=== PATIENT | female | born 1995 | race Caucasian/White ===

== ENCOUNTER 2016-12-10 05:15 | Emergency (ER) | payer BC, OTHER ==
[~2016-12-10] VITALS: Ht 167.6 cm; Wt 77.1 kg
[2016-12-10 06:01] LABS: BILIRUBIN,URINE NEGATIVE (NEGATIVE); KETONES,URINE NEGATIVE (NEGATIVE); LEUKOCYTE ESTERASE ,URINE NEGATIVE (NEGATIVE); NITRITE,URINE NEGATIVE (NEGATIVE); PH,URINE 6 (5-9); PROTEIN,URINE NEGATIVE (NEGATIVE); UROBILINOGEN,URINE NORMAL (NORMAL)
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
[2016-12-10 06:19] LABS: BASOPHILS # (AUTO) 0.1 10^3/uL (0.0-0.1); BASOPHILS % (AUTO) 1 % (0-10); EOSINOPHILS # (AUTO) 0.1 10^3/uL (0.0-0.3); EOSINOPHILS % (AUTO) 1 % (0-10); LYMPHOCYTES % (AUTO) 47 % (12-44); MEAN CORPUSCULAR HEMOGLOBIN 29 PG (25-34); MEAN CORPUSCULAR HGB CONC 34 G/DL (32-36); MEAN CORPUSCULAR VOLUME 85 FL (80-99); MEAN PLATELET VOLUME 10.9 FL (7.4-10.4); MONOCYTES # (AUTO) 0.7 X 10^3 (0.0-1.0); MONOCYTES % (AUTO) 6 % (0-12); NEUTROPHILS # (AUTO) 4.9 X 10^3 (1.8-7.8); NEUTROPHILS % (AUTO) 46 % (42-75); PLATELET COUNT 214 10^3/uL (130-400); RED BLOOD COUNT 4.67 10^6/uL (4.35-5.85); RED CELL DISTRIBUTION WIDTH 12.6 % (10.0-14.5); WHITE BLOOD COUNT 10.8 10^3/uL (4.3-11.0)
[2016-12-10] MEDS: KETOROLAC 60 MG/2 ML VIAL IM ONE (06:51)
[2016-12-10 07:12] VITALS: BP 114/80
--- OUTSIDE RECORDS SUMMARY | 2016-12-12 09:12 | XMS REPORT ---
Author Author JAZMIN DAMIAN Organization Unknown Address [address] [place] [address] [address] [place] [address] Care Team Providers Care Corporate Planner Name Role Phone NA BRISENO Unavailable JAZMIN DAMIAN Unavailable Problems Problem SNOMED Onset Date Resolved Date Status N/A N/A N/A N/A N/A Allergies, Adverse Reactions Substance Code Type Code Type Reaction Severity Status DOXYCYCLINE RxNorm 3640 Active Care Plan Goal Instructions Client will be functioning more independently with supports and have a life worth living. Engage with treatment team to build rapport. Learn and practice coping skills to reduce symptoms and improve functioning. The following Services will be utilized 1 - 3 times until goal is reached: Improve and maintain functioning through medical psychiatric services. Initial Psychiatric Evaluation, Ongoing medication monitoring and management, Case Conference with multidisciplinary members of the [facility] team as indicated, and/or Collaboration and coordination with outside medical providers as indicated by providing the following services: 13362 interactive complexity 73148 psychiatric diagnostic eval w/ meds 36052 30 min psychotherapy add-on 49782 45 [place] [address] 60 min psychotherapy add-on 62312 med injection 28662 New Patient E&M (level 1) 25364 New Patient E&M (level 2) 83353 New Patient E&M (level 3) 88097 New patient E&M (level 4) 78665 New Patient E&M (level 5) 66980 Established Patient E&M (level 1) 96166 Established Patient E&M (level 2) 27448 Established Patient E&M (level 3) 39049 Established Patient E& amp;M (level 4) 02081 Established Patient E&M (level 5) 9935x prolonged service code 16089 case conference w/o clt & [place]/ [place] [address] case conference w/o clt w / MD H0038 Peer Support Individual H2017 Psychosocial Rehab Indiv Medications Medication Code Dose,Form,Route,Freq Start Date End Date Multivitamin Gabapentin - 100 MG ORAL Capsule 414103 Take one (1) Capsule Three Times a Day FOR ANXIETY Sertraline HCl - 25 MG ORAL Tablet 457356 Take three (3) Tablets Daily LORazepam - 1 MG ORAL Tablet 106601 Take one (1) Tablet Twice a Day, As Necessary FOR ANXIETY traZODone hydrochloride - 100 MG ORAL Tablet 311179 Take one (1) Tablet At Bedtime, As Necessary FOR SLEEP/INSOMNIA Sertraline HCl - 25 MG ORAL Tablet 745872 Take three (3) Tablets Daily Lab Results NA Encounters Date Time Service Code Provider 01:31:00 pm JAZMIN DAMIAN 10:41:00 am JAZMIN DAMIAN Family History Functional Status NA Immunizations NA Vital Signs Date Time BP Pulse Temp Height Weight BMI 08:36:00 am 103 over 73 132 bpm 66.25 in 137 lbs 21.9 kg/m^2 Social History Date Smoking Status SNOMED Code Light Tobacco Smoker [id number] Hospital Discharge Instructions NA Hospital Discharge medications Date Medication Dose, Form, Route, Freq Code Multivitamin Instructions * Not Applicable Procedures NA Purpose Electronic Copy
--- OUTSIDE RECORDS SUMMARY | 2016-12-12 09:12 | XMS REPORT ---
Author Author JAZMIN DAMIAN Organization Unknown Address [address] [place] [address] [address] [place] [address] Care Team Providers Care Refinery Operator [employer] Name Role Phone NA BRISENO Unavailable JAZMIN DAMIAN Unavailable Problems Problem SNOMED Onset Date Resolved Date Status N/A N/A N/A N/A N/A Allergies, Adverse Reactions NA Care Plan Goal Instructions Client will be [...] as indicated by providing the following services: 47529 interactive complexity 34010 psychiatric diagnostic eval w/ meds 38880 30 min psychotherapy add-on 21587 45 [place] [address] 60 min psychotherapy add-on 90401 med injection 43695 New Patient E&M (level 1) 86482 New Patient E&M (level 2) 35783 New Patient E&M (level 3) 35649 New patient E&M (level 4) 14848 New Patient E&M (level 5) 68676 Established Patient E&M (level 1) 14842 Established Patient E&M (level 2) 03910 Established Patient E&M (level 3) 74697 Established Patient E& amp;M (level 4) 28303 Established Patient E&M (level 5) 9935x prolonged service code 64378 case conference w/o clt & [place] [address] case conference w/o clt w / MD H0038 Peer Support Individual H2017 Psychosocial Rehab Indiv Medications Medication Code Dose,Form,Route,Freq Start Date End Date Gabapentin - 100 MG ORAL Capsule 470794 Take one (1) Capsule Three Times a Day FOR ANXIETY Sertraline HCl - 25 MG ORAL Tablet 334855 Take three (3) Tablets Daily LORazepam - 1 MG ORAL Tablet 529691 Take one (1) Tablet Twice a Day, As Necessary FOR ANXIETY traZODone hydrochloride - 100 MG ORAL Tablet 088754 Take one (1) Tablet At Bedtime, As Necessary FOR SLEEP/INSOMNIA Lab Results NA Encounters Date Time Service Code Provider 01:31:00 pm JAZMIN DAMIAN 10:41:00 am JAZMIN DAMIAN Family History Functional Status NA Immunizations NA Vital Signs Date Time BP Pulse Temp Height Weight BMI 08:36:00 am 103 over 73 132 bpm 66.25 in 137 lbs 21.9 kg/m^2 Social History Date Smoking Status SNOMED Code Light Tobacco Smoker [id number] Hospital Discharge Instructions NA Instructions * Not Applicable Procedures NA Purpose Electronic Copy
--- OUTSIDE RECORDS SUMMARY | 2016-12-12 09:13 | XMS REPORT ---
Author Author JAZMIN DAMIAN Organization Unknown Address [address] [place] [id number] Care Team Providers Care Medicaid Plan Compliance Director Name Role Phone JUAN ANTONIO ULRICH Unavailable FINN, NA Unavailable JAZMIN DAMIAN Unavailable Problems Problem SNOMED Onset Date Resolved Date Status N/A N/A N/A N/A N/A Allergies, Adverse Reactions Substance Code Type Code Type Reaction Severity Status DOXYCYCLINE RxNorm 3640 Active Care Plan Medications Medication Code Dose,Form,Route,Freq Start Date End Date Multivitamin Gabapentin - 100 MG ORAL Capsule 357904 Take one (1) Capsule Three Times a Day FOR ANXIETY Sertraline HCl - 25 MG ORAL Tablet 217916 Take three (3) Tablets Daily LORazepam - 1 MG ORAL Tablet 693125 Take one (1) Tablet Twice a Day, As Necessary FOR ANXIETY traZODone hydrochloride - 100 MG ORAL Tablet 437642 Take one (1) Tablet At Bedtime, As Necessary FOR SLEEP/INSOMNIA Sertraline HCl - 25 MG ORAL Tablet 083685 Take three (3) Tablets Daily Lab Results NA Encounters Date Time Service Code Provider 01:31:00 pm JAZMIN DAMIAN 06:25:00 pm JUAN ANTONIO ULRICH 10:41:00 am JAZMIN DAMIAN Family History Functional Status NA Immunizations NA Vital Signs Date Time BP Pulse Temp Height Weight BMI 08:36:00 am 103 over 73 132 bpm 66.25 in 137 lbs 21.9 kg/m^2 Social History Date Smoking Status SNOMED Code Light Tobacco Smoker [id number] Hospital Discharge Instructions NA Hospital Discharge medications Date Medication Dose, Form, Route, Freq Code Multivitamin Instructions * Not Applicable Procedures Date Procedure Code Type Code Provider Purpose Electronic Copy
--- OUTSIDE RECORDS SUMMARY | 2016-12-12 09:13 | XMS REPORT ---
Author Author JAZMIN DAMIAN Organization Unknown Address [address] [place] [address] Care Team Providers Care Literacy Specialist Name Role Phone JUAN ANTONIO ULRICH Unavailable FINN, NA Unavailable JAZMIN DAMIAN Unavailable Problems Problem SNOMED Onset Date Resolved Date Status N/A N/A N/A N/A N/A Allergies, Adverse Reactions Substance Code Type Code Type Reaction Severity Status DOXYCYCLINE RxNorm 3640 Active Care Plan Medications Medication Code Dose,Form,Route,Freq Start Date End Date Multivitamin Gabapentin - 100 MG ORAL Capsule 882183 Take one (1) Capsule Three Times a Day FOR ANXIETY Sertraline HCl - 25 MG ORAL Tablet 604662 Take three (3) Tablets Daily LORazepam - 1 MG ORAL Tablet 096977 Take one (1) Tablet Twice a Day, As Necessary FOR ANXIETY traZODone hydrochloride - 100 MG ORAL Tablet 127541 Take one (1) Tablet At Bedtime, As Necessary FOR SLEEP/INSOMNIA Sertraline HCl - 25 MG ORAL Tablet 654927 Take three (3) Tablets Daily Lab Results NA Encounters Date Time Service Code Provider 01:31:00 pm JAZMIN DAMIAN 06:25:00 pm JUAN ANTONIO ULRICH 10:41:00 am JAZMIN DAMIAN Family History Functional Status NA Immunizations NA Vital Signs Date Time BP Pulse Temp Height Weight BMI 08:36:00 am 103 over 73 132 bpm 66.25 in 137 lbs 21.9 kg/m^2 Social History NA Hospital Discharge Instructions NA Hospital Discharge medications Date Medication Dose, Form, Route, Freq Code Multivitamin Instructions * Not Applicable Procedures NA Purpose Electronic Copy
== END 2016-12-10 07:14 | disposition home or self-care (01) ==
LOC: ER 05:20
DX: N93.9 Abnormal uterine and vaginal bleeding, unspecified (principal); F17.210 Nicotine dependence, cigarettes, uncomplicated; Z90.89 Acquired absence of other organs
CPT/HCPCS: 36415; 81000; 84703; 85025; 87070; 87210; 87491; 87591; 99284

== ENCOUNTER 2017-05-19 23:13 | Emergency (ER) | payer BC ==
[~2017-05-19] VITALS: Ht 170.2 cm; Wt 77.1 kg
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
--- NOTE | 2017-05-19 23:26 | ED GI ---
General Chief Complaint: -Female Stated Complaint: NAUSEA,6 WKS PREG Source of Information: Patient Exam Limitations: No Limitations History of Present Illness Date Seen by Provider: May 19, 2017 Time Seen by Provider: 23:25 Initial Comments Patient is a with no prior abdominal surgery as ER by EMS with a history of nausea for the last 2 weeks. She discovered she was about 2 weeks ago and stop drinking and smoking at that time. She did not start vomiting until 2 days ago when she went to [facility] and they told her that they did not feel comfortable prescribing anything for women and so [facility]. She has not taken anything for her nausea datg-loo-[id number] but she did use some peppermint and other things were suggested by the [facility] nurse. Patient's last menstrual period was April 11 which puts her at 5 weeks and 3 days. She's had no blood in her emesis. She's had no trauma. She is having no diarrhea or fevers or was she said she had some chills earlier. Patient denies abdominal pain. Allergies and Home Medications Allergies Coded Allergies: doxycycline (Verified Allergy, Unknown, 12/10/16) Home Medications Doxylamine Succinate 25 Mg Tablet, 25 MG PO Q8H PRN for NAUSEA/VOMITING-2ND LINE , #30 Ref 0 Prescribed by: PIPO NOBLE on 05/20/1748 Ondansetron 4 Mg Tab.rapdis, 4 MG PO Q6H PRN for NAUSEA/VOMITING-3RD LINE, #8 Ref 0 Prescribed by: PIPO NOBLE on 05/20/1748 Pyridoxine HCl 50 Mg Tablet, 50 MG PO Q6H PRN for NAUSEA/VOMITING-1ST LINE, #30 Ref 0 Prescribed by: PIPO NOBLE on 05/20/1748 Review of Systems Constitutional: No chills, No diaphoresis EENTM: No Blurred Vision, No Double Vision Respiratory: Denies Cough, Denies Shortness of Air Cardiovascular: Denies Chest Pain, Denies Palpitations Gastrointestinal: Denies Abdomen Distended, Denies Abdominal Pain, Denies Constipated, Denies Diarrhea, Nausea, Vomiting Genitourinary: Denies Discharge, Denies Drainage Musculoskeletal: No back pain, No joint pain Skin: No pruritus Past Mobgvvf-Neogoc-Uvboxn Hx Patient Social History Alcohol Use: Past History Recreational Drug Use: No Smoking Status: Former Smoker Type Used: Cigarettes Former Smoker, Quit: May 01, 2017 Recent Foreign Travel: No Contact w/Someone Who Travel: No Surgeries History of Surgeries: Yes (wisdom teeth) Surgeries: Adenoidectomy, Tonsillectomy Respiratory History of Respiratory Disorde: No Cardiovascular History of Cardiac Disorders: No Neurological History of Neurological Disord: No Reproductive System Hx Reproductive Disorders: No Genitourinary History of Genitourinary Disor: No Gastrointestinal History of Gastrointestinal Di: No Musculoskeletal History of Musculoskeletal Dis: No Endocrine History of Endocrine Disorders: Yes (reported hypoglycemia) HEENT History of HEENT Disorders: No Cancer History of Cancer: No Psychosocial History of Psychiatric Problem: No Integumentary History of Skin or Integumenta: No Blood Transfusions History of Blood Disorders: No Physical Exam Vital Signs VS - Last 72 Hours, by Label 05/19/17 23:15 Temp 96.8 Pulse 70 Resp 20 B/P (MAP) 116/84 (95) Pulse Ox 100 O2 Delivery Room Air Capillary Refill : General Appearance: WD/WN, no apparent distress HEENT: PERRL/EOMI, normal ENT inspection, TMs normal, pharynx normal Neck: non-tender, full range of motion, supple, normal inspection Respiratory: chest non-tender, lungs clear, normal breath sounds Cardiovascular: normal peripheral pulses, regular rate, rhythm Gastrointestinal: normal bowel sounds, non tender, soft Extremities: normal range of motion, normal capillary refill Neurologic/Psychiatric: alert, normal mood/affect, oriented x 3 Skin: normal color, warm/dry Progress/Results/Core Measures Results/Orders Lab Results Laboratory Tests Test 05/20/17 00:05 Range/Units Urine Color YELLOW Urine Clarity SLIGHTLY CLOUDY Urine pH 7 5-9 Urine Specific [place] 1.010 L 1.016-1.022 Urine Protein NEGATIVE NEGATIVE Urine Glucose (UA) NEGATIVE NEGATIVE Urine Ketones NEGATIVE NEGATIVE Urine Nitrite NEGATIVE NEGATIVE Urine Bilirubin NEGATIVE NEGATIVE Urine Urobilinogen NORMAL NORMAL MG/DL Urine Leukocyte Esterase 1+ H NEGATIVE Urine RBC (Auto) NEGATIVE NEGATIVE Urine RBC NONE /HPF Urine WBC 2-5 /HPF Urine Squamous Epithelial Cells 25-50 H /HPF Urine Crystals NONE /LPF Urine Bacteria MODERATE H /HPF Urine Casts NONE /LPF Urine Mucus NEGATIVE /LPF Urine Culture Indicated YES Micro Results Microbiology 05/19/17 Influenza Types A,B Antigen (ISMA) - Final, Complete My Orders Orders - PIPO NOBLE Ondansetron Oral Dissolve Tab (Zofran (05/19/17 23:30) Influenza A And B Antigens (05/19/17 23:23) Ua Culture If Indicated (05/19/17 23:23) Pyridoxine Tablet (Vitamin B-6 Tablet) (05/19/17 23:30) Urine Culture (05/20/17 00:05) Medications Given in ED Current Medications Medications Dose Ordered Sig/Rogers Route Start Time Stop Time Status Last Admin Dose Admin Ondansetron HCl 4 mg ONCE ONCE PO 05/19/17 23:30 05/19/17 23:31 DC 05/19/17 23:47 4 MG Pyridoxine HCl 50 mg ONCE ONCE PO 05/19/17 23:30 05/19/17 23:31 DC 05/20/17 00:14 50 MG Vital Signs/I&O Vital Sign - Last 12Hours 05/19/17 23:15 Temp 96.8 Pulse 70 Resp 20 B/P (MAP) 116/84 (95) Pulse Ox 100 O2 Delivery Room Air Departure Impression Impression: Primary Impression: Nausea/vomiting in Disposition: HOME, SELF-CARE Condition: Stable Departure-Patient Inst. Decision time for Depature: 00:45 Referrals: NO,LOCAL PHYSICIAN (PCP/Family) Primary Care Physician Patient Instructions: Nausea and Vomiting of (DC) Add. Discharge Instructions: If you start to have some nausea take 50 mg of period on scene by mouth every 6 hours as needed. If this is not working you can use the doxylamine. If that still not controlling her nausea you may also use the Zofran 1 tablet every 6 hours. Follow-up with Dr. CHAN at your scheduled appointment next week. After some nausea and vomiting episode yourself about an hour to GI rest followed by some clear liquids and slowly progressed your diet back as you tolerate other foods. All discharge instructions reviewed with patient and/or family. Voiced understanding. Scripts Ondansetron (Zofran Odt) 4 Mg Tab.rapdis 4 MG PO Q6H Y for NAUSEA/VOMITING-3RD LINE, #8 TAB 0 Refills Prov: PIPO NOBLE 05/20/17 Doxylamine Succinate (Unisom) 25 Mg Tablet 25 MG PO Q8H Y for NAUSEA/VOMITING-2ND LINE, #30 TAB 0 Refills Prov: PIPO NOBLE 05/20/17 Pyridoxine HCl (Pyridoxine HCl) 50 Mg Tablet 50 MG PO Q6H Y for NAUSEA/VOMITING-1ST LINE, #30 TAB 0 Refills Prov: PIPO NOBLE 05/20/17 Copy Copies To 1: SCOTT CHAN TITUS J May 19, 2017 23:26
[2017-05-19] MEDS ORDERED: PYRIDOXINE (VITAMIN B-6) 50 MG TABLET PO ONE (23:30)
[2017-05-19] MEDS ORDERED: ONDANSETRON 4 MG (ZOFRAN) ORAL DISSOLVE TAB PO ONE (23:30)
[2017-05-20 00:13] LABS: BILIRUBIN,URINE NEGATIVE (NEGATIVE); CLARITY,URINE SLIGHTLY CLOUDY; COLOR,URINE YELLOW; GLUCOSE, URINE (UA) NEGATIVE (NEGATIVE); KETONES,URINE NEGATIVE (NEGATIVE); LEUKOCYTE ESTERASE ,URINE 1+ (NEGATIVE); NITRITE,URINE NEGATIVE (NEGATIVE); PH,URINE 7 (5-9); PROTEIN,URINE NEGATIVE (NEGATIVE); UROBILINOGEN,URINE NORMAL (NORMAL)
[2017-05-20 00:19] LABS: BACTERIA,URINE MODERATE /HPF; SQUAMOUS EPITHELIAL CELL,UR 25-50 /HPF
[2017-05-20] MEDS ORDERED: PYRI50TA15 PO (00:49)
[2017-05-20] MEDS ORDERED: DOXY25TA46 PO (00:49)
[2017-05-20] MEDS ORDERED: ONDA4TAB8 PO (00:49)
[2017-05-20 01:50] VITALS: BP 108/64
== END 2017-05-20 01:50 | disposition home or self-care (01) ==
LOC: EDUNIT# 23:13 → ER 23:15
DX: O21.9 Vomiting of pregnancy, unspecified (principal); Z88.1 Allergy status to other antibiotic agents; Z87.891 Personal history of nicotine dependence; Z90.89 Acquired absence of other organs; Z3A.01 Less than 8 weeks gestation of pregnancy
CPT/HCPCS: 81000; 87088; 87804; 99283